=== PATIENT | male | born 1945 | race Caucasian/White ===

== ENCOUNTER → 2023-10-27 06:49 | Outpatient (REF) | payer MEDICARE, OTHER, SELFPAY ==
[2023-10-27 07:41] LABS: ALT (SGPT) 12 U/L (0-50); AST (SGOT) 25 U/L (17-59); Alkaline Phosphatase 61 U/L (38-126); Blood Urea Nitrogen 21 mg/dl (9-20); Calcium 9.4 mg/dl (8.4-10.2); Carbon Dioxide 27 mmol/L (22-30); Chloride 105 mmol/L (98-107); Glucose 106 mg/dl (70-99); HDL Cholesterol 41 mg/dl; LDL Cholesterol, Calculated 38 mg/dl; Potassium 4.4 mmol/L (3.5-5.1); Sodium 139 mmol/L (135-145); Total Bilirubin 0.8 mg/dl (0.2-1.3); Total Cholesterol 97 mg/dl (50-199); Total Protein 6.7 g/dl (6.3-8.2); Triglyceride 94 mg/dl (10-149); Very Low Density Lipoprotein 18 mg/dl (0-30); eGFR > 60.00
[2023-10-27 08:17] LABS: PSA, Total - Diagnostic < 0.06 ng/ml (0.0-4.0)
[2023-10-27 14:25] LABS: Urine Albumin Negative (Neg - Trace); Urine Bilirubin Negative (Negative); Urine Character Clear (Clear); Urine Color Yellow; Urine Glucose Negative (Negative); Urine Ketone Negative (Negative); Urine Leukocyte Negative (Negative); Urine Nitrite Negative (Negative); Urine Occult Blood Negative (Negative); Urine Specific Gravity 1.015 (<1.030); Urine Urobilinogen Negative (Neg - 1+)
[2023-10-27 14:26] LABS: % Basophils 0.5 % (0-2); % Eosinophils 3.4 % (0-6); % Immature Granulocytes 0.7 % (0-0.5); % Neutrophils 65.4 % (42.2-75.2); Absolute Eosinophils 0.3 10^3/uL (0-0.7); Absolute Immature Granulocytes 0.1 10^3/uL (0-0.05); Absolute Lymphocytes 1.7 10^3/uL (1.2-3.4); Absolute Monocytes 0.5 10^3/uL (0.1-0.6); Absolute Neutrophils 4.8 10^3/uL (1.4-6.5); Hematocrit 41.1 % (39.0-52.0); Hemoglobin 13.9 g/dL (13.0-18.0); Mean Corp Hgb Conc. 33.8 g/dL (33.0-37.0); Mean Corpuscular Hgb 29.4 pg (27.0-31.0); Mean Corpuscular Volume 87.1 fL (80.0-94.0); Mean Platelet Volume 10.5 fL (7.4-10.4); Nucleated Red Blood Cells % 0 % (-); Platelet Count 182 10^3/uL (130-400); Red Blood Cell Count 4.72 10^6/uL (4.70-6.10); Red Cell Dist. Width 12.8 % (11.5-14.5); White Blood Cell Count 7.4 10^3/uL (4.8-10.8)
[2023-10-27 15:05] LABS: Microalbumin, Random Urine <0.6 mg/dl (0.6-1.7)
[2023-10-27 15:13] LABS: Vitamin D, 25-OH*** 29.3 ng/mL (30-80)
== END ==
LOC: REG 06:49
PROVIDERS: ATTENDING PHYSICIAN Internal Medicine Interventional Cardiology; FAMILY PHYSICIAN Internal Medicine; REFERRING PHYSICIAN Specialist
DX: C61 Malignant neoplasm of prostate (principal); I25.2 Old myocardial infarction; E78.2 Mixed hyperlipidemia; Z79.899 Other long term (current) drug therapy
CPT/HCPCS: 36415; 80053; 80061; 81003; 82043; 82306; 82570; 84153; 85025

== ENCOUNTER → 2024-10-18 07:03 | Outpatient (REF) | payer MEDICARE, OTHER, SELFPAY ==
[2024-10-18 14:37] LABS: Rubeola (Measles) IgG Positive
== END ==
LOC: REG 07:03
PROVIDERS: ATTENDING PHYSICIAN Internal Medicine
DX: Z01.84 Encounter for antibody response examination (principal)
CPT/HCPCS: 36415; 86765

== ENCOUNTER → 2024-10-25 06:35 | Outpatient (REF) | payer MEDICARE, OTHER, SELFPAY ==
[2024-10-25 07:36] LABS: Urine Albumin Negative (Neg - Trace); Urine Bilirubin Negative (Negative); Urine Character Slightly Cloudy (Clear); Urine Color Yellow; Urine Glucose Negative (Negative); Urine Ketone Negative (Negative); Urine Leukocyte Negative (Negative); Urine Nitrite Negative (Negative); Urine Occult Blood 1+ (Negative); Urine Specific Gravity 1.015 (<1.030); Urine Urobilinogen Negative (Neg - 1+)
[2024-10-25 07:37] LABS: % Basophils 0.6 % (0-2); % Immature Granulocytes 0.5 % (0-0.5); % Lymphocytes 24.4 % (20.5-51.1); % Monocytes 7.9 % (1.7-9.3); % Neutrophils 62.6 % (42.2-75.2); Absolute Eosinophils 0.3 10^3/uL (0-0.7); Absolute Lymphocytes 1.6 10^3/uL (1.2-3.4); Absolute Monocytes 0.5 10^3/uL (0.1-0.6); Hematocrit 42.6 % (39.0-52.0); Hemoglobin 14.2 g/dL (13.0-18.0); Mean Corp Hgb Conc. 33.3 g/dL (33.0-37.0); Mean Corpuscular Hgb 29.2 pg (27.0-31.0); Mean Corpuscular Volume 87.7 fL (80.0-94.0); Mean Platelet Volume 9.8 fL (7.4-10.4); Nucleated Red Blood Cells % 0 % (-); Platelet Count 166 10^3/uL (130-400); Red Blood Cell Count 4.86 10^6/uL (4.70-6.10); White Blood Cell Count 6.4 10^3/uL (4.8-10.8)
[2024-10-25 07:51] LABS: HDL Cholesterol 40 mg/dl; LDL Cholesterol, Calculated 42 mg/dl; Total Cholesterol 99 mg/dl (50-199); Triglyceride 85 mg/dl (10-149); Very Low Density Lipoprotein 17 mg/dl (0-30)
[2024-10-25 07:52] LABS: ALT (SGPT) 13 U/L (0-50); AST (SGOT) 25 U/L (17-59); Albumin 4.1 g/dl (3.5-5.0); Alkaline Phosphatase 58 U/L (38-126); Blood Urea Nitrogen 20 mg/dl (9-20); Calcium 9.6 mg/dl (8.4-10.2); Carbon Dioxide 26 mmol/L (22-30); Chloride 106 mmol/L (98-107); Glucose 108 mg/dl (70-99); Potassium 4.7 mmol/L (3.5-5.1); Sodium 139 mmol/L (135-145); Total Protein 6.6 g/dl (6.3-8.2); Urine Bacteria Few (Negative); Urine Red Blood Cell 0-2 /HPF (0-2); Urine Squamous Cell 0-2 /LPF (Few); Urine White Cell 0-2 /HPF (0-5); eGFR > 60.00
[2024-10-25 08:19] LABS: PSA, Total - Diagnostic < 0.06 ng/ml (0.0-4.0)
== END ==
LOC: REG 06:35
PROVIDERS: ATTENDING PHYSICIAN Specialist; FAMILY PHYSICIAN Internal Medicine; OTHER PHYSICIAN Internal Medicine Interventional Cardiology
DX: C61 Malignant neoplasm of prostate (principal); E78.2 Mixed hyperlipidemia; Z00.00 Encounter for general adult medical examination without abnormal findings; Z12.5 Encounter for screening for malignant neoplasm of prostate; Z79.890 Hormone replacement therapy; E55.9 Vitamin D deficiency, unspecified; R73.01 Impaired fasting glucose
CPT/HCPCS: 36415; 80053; 80061; 81003; 81015; 83036; 84153; 85025

== ENCOUNTER → 2024-10-27 06:39 | Outpatient (REF) | payer MEDICARE, OTHER, SELFPAY | LOC: PAVMRI 06:39 | PROVIDERS: ATTENDING PHYSICIAN Physician Assistant Surgical; FAMILY PHYSICIAN Internal Medicine | DX: M25.551 Pain in right hip (principal) | CPT/HCPCS: 72148; 73721 ==

== ENCOUNTER → 2024-11-27 07:49 | Outpatient (REF) | payer MEDICARE, OTHER, SELFPAY ==
--- NOTE | 2024-11-27 09:04 | CARDSERVLU ---
Echocardiogram with Lumason completed after protocol screening completed. Allergies verified: none.
Patent IV site: __new start 1st attempt 22P RAC___
IV site flushed with 0.9% NaCl pre and post administration.
Diluted bolus method utilized to enhance visualization of ventricular srinivasan.
Total volume given: _2.5___ mL
site dcd at completion of test.
Patient tolerated all procedures well without complications.
== END ==
LOC: RCS 07:49
PROVIDERS: ATTENDING PHYSICIAN Internal Medicine Interventional Cardiology; FAMILY PHYSICIAN Internal Medicine
DX: I25.2 Old myocardial infarction (principal); R06.02 Shortness of breath
CPT/HCPCS: 93306; Q9957

== ENCOUNTER → 2025-06-17 06:39 | Outpatient (REF) | payer MEDICARE, OTHER, SELFPAY ==
[2025-06-17 07:39] LABS: Hematocrit 40.3 % (39.0-52.0); Hemoglobin 13.7 g/dL (13.0-18.0); Mean Corp Hgb Conc. 34.0 g/dL (33.0-37.0); Mean Corpuscular Volume 87.4 fL (80.0-94.0); Nucleated Red Blood Cells % 0 % (-); Platelet Count 162 10^3/uL (130-400); Red Cell Dist. Width 12.4 % (11.5-14.5)
[2025-06-17 08:11] LABS: Blood Urea Nitrogen 18 mg/dl (9-20); Calcium 9.6 mg/dl (8.4-10.2); Carbon Dioxide 29 mmol/L (22-30); Chloride 105 mmol/L (98-107); Glucose 106 mg/dl (70-99); Potassium 5.1 mmol/L (3.5-5.1); Sodium 137 mmol/L (135-145); eGFR > 60.00
== END ==
LOC: REG 06:39
PROVIDERS: ATTENDING PHYSICIAN Student in an Organized Health Care Education/Training Program; FAMILY PHYSICIAN Internal Medicine; REFERRING PHYSICIAN Internal Medicine Interventional Cardiology
DX: Z01.818 Encounter for other preprocedural examination (principal)
CPT/HCPCS: 36415; 80048; 85025

== ENCOUNTER 2025-07-15 06:18 | Day surgery (SDC) | payer MEDICARE, OTHER, SELFPAY ==
[2025-07-15] VITALS (12 sets, daily range): BP systolic 127–163; BP diastolic 68–90; BMI 24.3
[2025-07-15] MEDS: NORMOSOL-R/PLASMALYTE-A 1000 IV (09:56)
[2025-07-15] MEDS: TYLENOL 1000 MG PO (09:56)
[2025-07-15] MEDS: CELEBREX 200 MG PO (09:56)
[2025-07-15] MEDS: SUBLIMAZE 25 MCG IV (13:42)
== END 2025-07-15 15:32 | disposition home or self-care (01) ==
LOC: SDS 06:18
PROVIDERS: ATTENDING PHYSICIAN Student in an Organized Health Care Education/Training Program
DX: M20.21 Hallux rigidus, right foot (principal); M20.5X1 Other deformities of toe(s) (acquired), right foot; M79.671 Pain in right foot
CPT/HCPCS: 28750; C1713; C1776